=== PATIENT | male | born 1955 | race Caucasian/White ===

== ENCOUNTER 2016-06-09 16:04 | Inpatient (IN) | payer MEDICARE, OTHER ==
--- NOTE | ~2016-06-09 | HP ---
Unit #: [id number] #: [id number] Patient: JOSIANE LAGUNAS [id number] [address] [address] [id number] I MR#: [id number] NAME: JOSIANE LAGUNAS ROOM: 75064 Age: 60 Sex: M Admission Date: 06/09/2016 : 1955 Attending Physician: Dominga Olivia M.D. HISTORY AND PHYSICAL ADDENDUM Within 30 minutes of admission, the patient left against medical advice. The risks of leaving including were explained to the patient. He was oriented x3 and expressed complete understanding of the risks including . Dictated by Rod Saha/tasneem TD: 06/09/2016 21:21 JOB #: [id number] HISTORY AND PHYSICAL Page 1 of 1 X Dominga Olivia MD X HISTORY AND PHYSICAL
--- NOTE | ~2016-06-09 | EKG ---
PATIENT: JOSIANE LAGUNAS UNIT #: [id number] Ventricular Rate: 85 BPM Atrial Rate: 85 BPM P-R Interval: 160 ms QRS Duration: 90 ms Q-T Interval: 364 ms QTC Calculation(Bezet): 433 ms P [place]: 70 degrees Calculated R [place]: -16 degrees Calculated T [place]: 38 degrees Diagnosis Line: Normal sinus rhythm Diagnosis Line: Low voltage QRS Diagnosis Line: Borderline ECG Diagnosis Line: No previous ECGs available Diagnosis Line: Confirmed by WOLF HOLLY MD ([id number]) on 06/11/2016 Diagnosis Line: 10:57:16 PM INTERPRETING MD: AVNI ARMSTRONG
--- NOTE | ~2016-06-09 | HP ---
Unit #: [id number] #: [id number] Patient: JOSIANE LAGUNAS [id number] [address] [address] [id number] I MR#: [id number] NAME: JOSIANE LAGUNAS ROOM: 89448 Age: 60 Sex: M Admission Date: 06/09/2016 : 1955 Attending Physician: Dominga Olivia M.D. HISTORY AND PHYSICAL CHIEF COMPLAINT Heroin overdose, hyperglycemia. HISTORY OF PRESENT ILLNESS The patient is a 60-year-old male with a past medical history of diabetes, hypertension, and polysubstance abuse, who presented to the emergency department via EMS for evaluation of the above. History is obtained from chart review and discussion with ER staff due to the patient's altered mental status. EMS was apparently called for the patient being unresponsive. Upon arrival, the patient was awake and alert but admitted to snorting heroin. Accu-Chek read as "high," and the patient was advised to come to the hospital. The patient has apparently been without insulin for several months. Upon arrival in the emergency department, the patient's pulse and blood pressure were 188 and 123/79, respectively. Oxygen saturation was 84% on room air. Chest x-ray shows nothing acute. Laboratory is notable for glucose of 911 and BUN and creatinine 19 and 1.7, respectively. Urine toxicology screen positive for cocaine and opiates. He was given two liters of normal saline, as well as 10 units of regular insulin and 0.4 mg of Narcan. He is being admitted to [facility] for evaluation and further treatment. PAST MEDICAL HISTORY 1. Admission to [facility] July 22-2014, for suicidal ideations. 2. Chronic obstructive pulmonary disease with continued tobacco abuse. 3. Diabetes, noncompliant with insulin. 4. Hypertension. PAST SURGICAL HISTORY 1. Splenectomy. 2. Back surgery. 3. Testicular surgery. 4. Bilateral hand surgery. SOCIAL HISTORY The patient smokes. He also snorts heroin. FAMILY HISTORY Currently unobtainable. REVIEW OF SYSTEMS Unit #: [id number] #: [id number] Patient: JOSIANE LAGUNAS A complete review of systems is attempted but limited due to the patient's altered mental status. The patient denies any suicidal or homicidal ideation. PHYSICAL EXAMINATION VITAL SIGNS: Temperature is 98.9, pulse 88, respirations 9, blood pressure 123/79, and oxygen saturation is 84% on room air. GENERAL: Patient is a male who is sleeping but wakes to physical stimuli. HEENT: Patient does have a contusion in the left infraorbital region. Mucous membranes are dry. NECK: Supple. Trachea is midline. CARDIOVASCULAR: Regular rate and rhythm. LUNGS: Scattered wheezing. Breathing is not labored. ABDOMEN: Soft and nontender with bowel sounds present in all four quadrants. EXTREMITIES: Nontender with no pedal edema. NEUROLOGIC: Patient is oriented x3. He follows commands but quickly falls back to sleep. He is moving all extremities. PSYCHIATRIC: Patient demonstrates poor insight and judgment. SKIN: Skin of examined areas is warm and dry. DIAGNOSTIC STUDIES LABORATORY: Urine toxicology screen is positive for cocaine and opiates. Comprehensive metabolic panel notable for sodium of 119, chloride 83, bicarb 24, glucose 911, BUN and creatinine 19 and 1.7, respectively, and AST is 85. Beta hydroxybutyrate 0.55. Urinalysis notable for 1+ protein, greater than 1000 glucose, and 3+ blood. Troponin is less than 0.05. Complete blood count notable for hemoglobin and hematocrit of 12.4 and 39, respectively. CK-MB is 46.7. CPK is pending. IMAGING: Chest x-ray shows nothing acute. CARDIOLOGY: EKG shows normal sinus rhythm with a rate of 85 beats per minute. ASSESSMENT The patient is a 60-year-old male with: 1. Altered mental status secondary to #2 and #3. 2. Heroin overdose. The patient received 0.4 mg of Narcan in the emergency department. 3. Uncontrolled diabetes with an initial glucose of 911. The patient received two liters of normal saline, as well as 10 units of regular insulin. The most recent Accu-Chek is 467. The patient has been noncompliant with insulin. 4. Acute respiratory failure, hypoxic. 5. Chronic obstructive pulmonary disease exacerbation. 6. Acute kidney injury. The patient's creatinine was 0.9 on July 22, 2014. It is 1.7 today. 7. Rhabdomyolysis. 8. Hypertension. 9. Polysubstance abuse. 10. Tobacco abuse. PLAN 1. Admit to ICU. 2. N.p.o. until more awake, passes bedside swallow, and off insulin drip. 3. TSH, B12, and folate. Unit #: [id number] #: [id number] Patient: JOSIANE LAGUNAS 4. Neuro checks. 5. Rope [employer]/Social Work consult regarding substance abuse. 6. Hemoglobin A1c. 7. TSH. 8. Insulin drip per non-DKA protocol to start now. 9. Normal saline at 150 mL/hour to start now. 10. Supplemental oxygen. 11. DuoNebs q.4 hours while awake and q.2 hours p.r.n. 12. I have not started Solu-Medrol due to hyperglycemia. 13. Follow up results of CPK. 14. Serial cardiac enzymes. 15. Repeat BMP later this evening. 16. P.r.n. Tylenol. 17. P.r.n. Zofran. 18. Protonix for GI prophylaxis since the patient will be in the ICU. 19. SCDs for DVT prophylaxis. 20. Consult Chest Medicine regarding ICU admission. 21. Repeat labs in the morning including CPK. 22. Additional workup and consultants based on above. Thirty-five (35) minutes critical care time spent in the care of this patient (5:30-6:05 p.m.). Dictated by Dominga Olivia M.D. AW/tasneem TD: 06/09/2016 18:50 JOB #: [id number] HISTORY AND PHYSICAL Page 1 of 1 X Dominga Olivia MD X HISTORY AND PHYSICAL
--- NOTE | ~2016-06-09 | CR72 ---
[facility] A Service of [facility] RADIOLOGY TEXT RESULTS PATIENT: JOSIANE LAGUNAS LOCATION: [facility] [id number] : [birth year] UNIT #: [id number] AGE: [address]: Dominga Olivia MD SEX: M ORDER DR: [id number] [facility] [address]. [place], [place] [address] [id number] I MR#: [id number] Acc #: [id number] NAME: JOSIANE LAGUNAS : 1955 SEX: M STUDY DATE/TIME: 06/09/2016 15:47 UNIT: [facility] ROOM: 53100 STUDY DESCRIPTION: CR Chest Single View Portable Attending Physician: Dominga Olivia M.D. Ordering Physician: Cassius Angeles M.D. Primary Care Physician: Primary Care Physician No MEDICAL IMAGING REPORT This report is preliminary unless electronic signature is present EXAM Chest x-ray portable HISTORY Heroin overdose, hyperglycemic, COPD, short of air today, smoker. COMMENT Single frontal portable view of the chest timed 15:47 on 06/09/2016 is reviewed. Comparison 08/25/2011. There is evidence for old granulomatous disease. The heart size is top normal. There is no acute appearing parenchymal infiltrate, acute congestive failure, pleural effusion or pneumothorax. Minimal linear atelectasis or scarring at the left base. IMPRESSION Minimal linear atelectasis or scarring left base, otherwise no active disease. Dictated by... Jessie Mcnamara M.D. THIS IS AN ELECTRONICALLY VERIFIED REPORT Jessie Mcnamara M.D. at 06/09/2016 11:12 PM SHARONDA/javier TD: 06/09/2016 21:31 JOB #: [id number] MEDICAL IMAGING REPORT Page 1 of 1 COPY
[~2016-06-09 16:04] MED LIST: GLUCOTROL XL; KENALOG IN ORABA5 GM; LISINOPRIL; NOVOLIN 70/30 V10 ML; PRILOSEC; ULTRAM
[2016-06-09 16:09] LABS: BASOPHIL# 0.1 X10e3 (0-0.3); BASOPHIL% 1.1 % (0-2.5); EOSINOPHIL# 0.1 X10e3 (0-0.7); EOSINOPHIL% 0.8 % (0.0-7.0); HEMOGLOBIN 12.4 gm/dL (13.0-16.0); LYMPHOCYTE# 1.8 X10e3 (1.0-3.5); LYMPHOCYTE% 19.1 % (17.0-45.0); MEAN CELL VOLUME 95.2 FL (83-96); MEAN CORPUSCULAR HEMOGLOBIN 30.2 PG (28-34); MEAN CORPUSCULAR HGB CONC 31.8 g/dL (30-36); MEAN PLATELET VOLUME 9.7 FL (6.5-11.5); NEUTROPHIL# 6.3 X10e3 (1.5-7.1); PLATELET COUNT 222 X10e3 (140-420); RED CELL DISTRIBUTION WIDTH 13.3 % (11.0-15.5); WHITE BLOOD COUNT 9.3 X10e3 (4.0-10.5)
[2016-06-09 16:11] LABS: DIFF IND NO
[2016-06-09 16:25] LABS: POC - CKMB 46.7 ng/mL (0.0-7.9); POC - TROPONIN <0.05 ng/mL (<=0.05)
[2016-06-09 16:50] LABS: URINE SOURCE CLEAN CATCH
[2016-06-09 17:08] LABS: URINE APPEARANCE CLEAR; URINE BILIRUBIN NEG (NEG); URINE BLOOD 3+ (NEG); URINE COLOR YELLOW; URINE GLUCOSE >1000 MG/DL (NEG); URINE KETONE NEG (NEG); URINE LEUKOCYTE ESTERASE NEG (NEG); URINE NITRATE NEG (NEG); URINE PH 5.5 (5-8); URINE PROTEIN 1+ (NEG); URINE SPECIFIC GRAVITY 1.027 (1.003-1.035); URINE UROBILINOGEN 0.2 MG/DL (NEG)
[2016-06-09 17:11] LABS: URBCS1 AUWI 0-2 /[HPF] (0-2); URINE BACTERIA AUWI NEG (NEGATIVE); URINE SQUAMOUS EPITHELIAL CELL NONE SEEN /[HPF]; UWBCS1 AUWI 0-2 (0-5)
[2016-06-09 17:14] LABS: CULTURE INDICATED? NO
[2016-06-09 17:17] LABS: BETA HYDROXYBUTYRATE 0.55 MMOL/L (0.02-0.27); BILIRUBIN, DIRECT 0.2 mg/dL (0.0-0.2); BILIRUBIN,TOTAL 1.2 mg/dL (0.2-2.0); BUN/CREATININE RATIO 11.17; CALCIUM SERUM 9.2 mg/dL (8.4-10.2); CREATININE SERUM 1.7 mg/dL (0.6-1.4); GLOM FILT RATE Estimated 43.5 mL/min (>60); POTASSIUM 4.4 mmol/L (3.5-5.1); PROTEIN TOTAL SERUM 7.4 g/dL (6.0-8.3)
[2016-06-09 17:20] LABS: AMPHETAMINE NEG (NEG); BARBITURATES NEG (NEG); BENZODIAZEPINES NEG (NEG); COCAINE POS (NEG); MARIJUANA NEG (NEG); OPIATES POS (NEG); TRICYCLIC ANTIDEPRESSANTS NEG (NEG); U METHADONE NEG (NEG)
[2016-06-09] MEDS ORDERED: PROTONIX PO (17:24)
[2016-06-09] MEDS ORDERED: LISINOPRIL5 MG PO (17:24)
[2016-06-09] MEDS ORDERED: LIPITOR20 MG PO (17:24)
[2016-06-09] MEDS ORDERED: NOVOLOG100 U/M2 SUBQ (17:25)
[2016-06-09] MEDS ORDERED: TRESIBA FL100 UNIT/1 SUBQ (17:25)
[2016-06-09] MEDS ORDERED: GABAPENTIN400 M2 PO (17:25)
[2016-06-09 19:20] LABS: FOLATE (FOLIC ACID) 17.4 ng/mL (>5.8)
== END 2016-06-09 18:44 | disposition left against medical advice (07) | DRG 917 ==
LOC: CED 16:04 → CEDOF 18:43
PROVIDERS: Emergency Medicine; Family Medicine
DX: T40.1X1A Poisoning by heroin, accidental (unintentional), initial encounter (principal); J96.01 Acute respiratory failure with hypoxia; J44.1 Chronic obstructive pulmonary disease with (acute) exacerbation; N17.9 Acute kidney failure, unspecified; M62.82 Rhabdomyolysis; E11.65 Type 2 diabetes mellitus with hyperglycemia; Z79.4 Long term (current) use of insulin; Z91.14 Patient's other noncompliance with medication regimen; F17.210 Nicotine dependence, cigarettes, uncomplicated; F19.10 Other psychoactive substance abuse, uncomplicated
CPT/HCPCS: 36415; 71010; 80048; 80076; 80307; 81003; 82010; 82550; 82553; 82607; 82746; 82947; 83036; 84443; 84484; 85025; 93005; 94640; 96361; 96374; 99285; J2310